=== PATIENT | male | born 1945 | race Caucasian/White ===

== ENCOUNTER → 2016-12-07 | Outpatient (CLI) | payer MEDICARE ==
[~2016-12-07] MED LIST: BAYE325T3 PO; BENA10TA PO; FLUO40CA PO; GLIM4TAB PO; LANTUSP SQ; LIPI20TA PO; LORA-474 PO; METF-324 PO; METO25 PO; NORV5TAB PO; NOVOLOGP2 SQ; TRAZ50TA78 PO
[2016-12-07 07:17] LABS: HEMATOCRIT 45.2 % (39.0-51.0); MEAN CELL VOLUME 81.6 FL (80.0-100.0); MEAN CORPUSCULAR HGB CONC 34.3 % (32.0-36.0); PLATELET COUNT 161 TH/MM3 (150-450); RED BLOOD COUNT 5.54 MIL/MM3 (4.50-5.90); RED CELL DISTRIBUTION WIDTH 13.6 % (11.6-17.2); REVIEW FLAG FINAL; WHITE BLOOD COUNT 8.3 TH/MM3 (4.0-11.0)
[2016-12-07 07:40] LABS: ALT (GPT) 22 U/L (12-78); ANION GAP 13 MEQ/L (5-15); AST (GOT) 14 U/L (15-37); BICARBONATE 27.2 MEQ/L (21.0-32.0); BLOOD UREA NITROGEN 11 MG/DL (7-18); CHLORIDE 101 MEQ/L (98-107); GLOMERULAR FILTRATION RATE 107 ML/MIN (>89); GLUCOSE,FASTING 150 MG/DL (74-99); POTASSIUM 3.9 MEQ/L (3.5-5.1); SODIUM (NA) 141 MEQ/L (136-145)
[2016-12-07 07:42] LABS: ALKALINE PHOSPHATASE 68 U/L (45-117); HDL CHOLESTEROL 41.7 MG/DL (40.0-60.0); LDL CHOLESTEROL 26 MG/DL (0-99); TOTAL BILIRUBIN ADULT 0.5 MG/DL (0.2-1.0)
[2016-12-07 08:01] LABS: MICRO ALBUMIN RANDOM URINE RAW 38.9 MG/L (0.0-30.0)
[2016-12-07 13:30] LABS: HEMOGLOBIN A1a 0.9 %; HEMOGLOBIN A1b 2.6 %; HEMOGLOBIN Ao 81.9 %; HEMOGLOBIN LA1C 2.4 %; HEMOGLOBIN P3 4.1 %
== END ==
LOC: CLAB 06:36
DX: E11.65 Type 2 diabetes mellitus with hyperglycemia (principal); F31.12 Bipolar disorder, current episode manic without psychotic features, moderate
CPT/HCPCS: 36415; 80053; 80061; 80164; 82043; 83036; 84681; 85027

== ENCOUNTER → 2017-01-03 | Outpatient (CLI) | payer MEDICARE ==
[2017-01-03 10:13] LABS: HEMATOCRIT 45.2 % (39.0-51.0); MEAN CORPUSCULAR HEMOGLOBIN 26.9 PG (27.0-34.0); MEAN CORPUSCULAR HGB CONC 33.2 % (32.0-36.0); PLATELET COUNT 168 TH/MM3 (150-450); RED BLOOD COUNT 5.58 MIL/MM3 (4.50-5.90); RED CELL DISTRIBUTION WIDTH 13.8 % (11.6-17.2); REVIEW FLAG FINAL; WHITE BLOOD COUNT 9.4 TH/MM3 (4.0-11.0)
[2017-01-03 10:38] LABS: ALKALINE PHOSPHATASE 62 U/L (45-117); ALT (GPT) 22 U/L (12-78); ANION GAP 10 MEQ/L (5-15); AST (GOT) 11 U/L (15-37); BICARBONATE 28.4 MEQ/L (21.0-32.0); BLOOD UREA NITROGEN 12 MG/DL (7-18); CHLORIDE 100 MEQ/L (98-107); GLOMERULAR FILTRATION RATE 102 ML/MIN (>89); GLUCOSE,FASTING 217 MG/DL (74-99); POTASSIUM 4.2 MEQ/L (3.5-5.1); SODIUM (NA) 138 MEQ/L (136-145); TOTAL BILIRUBIN ADULT 0.6 MG/DL (0.2-1.0)
== END ==
LOC: CLAB 09:49
DX: F31.12 Bipolar disorder, current episode manic without psychotic features, moderate (principal)
CPT/HCPCS: 36415; 80053; 80164; 85027

== ENCOUNTER → 2017-01-31 | Outpatient (CLI) | payer MEDICARE ==
[2017-01-31 11:04] LABS: MEAN CELL VOLUME 80.9 FL (80.0-100.0); MEAN CORPUSCULAR HEMOGLOBIN 26.5 PG (27.0-34.0); MEAN CORPUSCULAR HGB CONC 32.8 % (32.0-36.0); PLATELET COUNT 140 TH/MM3 (150-450); RED BLOOD COUNT 5.82 MIL/MM3 (4.50-5.90); RED CELL DISTRIBUTION WIDTH 14.3 % (11.6-17.2); REVIEW FLAG FINAL; WHITE BLOOD COUNT 7.4 TH/MM3 (4.0-11.0)
[2017-01-31 11:39] LABS: ALKALINE PHOSPHATASE 61 U/L (45-117); ALT (GPT) 22 U/L (12-78); ANION GAP 12 MEQ/L (5-15); AST (GOT) 15 U/L (15-37); BICARBONATE 27.4 MEQ/L (21.0-32.0); BLOOD UREA NITROGEN 13 MG/DL (7-18); CHLORIDE 99 MEQ/L (98-107); GLOMERULAR FILTRATION RATE 89 ML/MIN (>89); GLUCOSE,FASTING 297 MG/DL (74-99); POTASSIUM 4.3 MEQ/L (3.5-5.1); SODIUM (NA) 138 MEQ/L (136-145); TOTAL BILIRUBIN ADULT 0.7 MG/DL (0.2-1.0)
== END ==
LOC: CLAB 10:34
DX: F31.12 Bipolar disorder, current episode manic without psychotic features, moderate (principal)
CPT/HCPCS: 36415; 80053; 80164; 85027

== ENCOUNTER → 2017-03-22 | Outpatient (CLI) | payer MEDICARE ==
[2017-03-22 07:34] LABS: ANION GAP 9 MEQ/L (5-15); BICARBONATE 29.3 MEQ/L (21.0-32.0); BLOOD UREA NITROGEN 16 MG/DL (7-18); CHLORIDE 102 MEQ/L (98-107); GLOMERULAR FILTRATION RATE 116 ML/MIN (>89); GLUCOSE,FASTING 165 MG/DL (74-99); POTASSIUM 3.8 MEQ/L (3.5-5.1); SODIUM (NA) 140 MEQ/L (136-145)
[2017-03-22 16:51] LABS: HEMOGLOBIN A1b 2.6 %; HEMOGLOBIN Ao 82.1 %; HEMOGLOBIN LA1C 2.3 %; HEMOGLOBIN P3 4.2 %
== END ==
LOC: CLAB 06:33
DX: E11.65 Type 2 diabetes mellitus with hyperglycemia (principal)
CPT/HCPCS: 36415; 80048; 83036

== ENCOUNTER → 2017-07-22 | Outpatient (CLI) | payer MEDICARE ==
[2017-07-22 08:27] LABS: ANION GAP 8 MEQ/L (5-15); BICARBONATE 27.4 MEQ/L (21.0-32.0); BLOOD UREA NITROGEN 20 MG/DL (7-18); CHLORIDE 103 MEQ/L (98-107); GLOMERULAR FILTRATION RATE 121 ML/MIN (>89); GLUCOSE,FASTING 195 MG/DL (74-99); SODIUM (NA) 138 MEQ/L (136-145)
[2017-07-22 14:57] LABS: HEMOGLOBIN A1a 0.9 %; HEMOGLOBIN A1b 2.8 %; HEMOGLOBIN Ao 80.9 %; HEMOGLOBIN LA1C 2.4 %; HEMOGLOBIN P3 4.1 %
== END ==
LOC: CLAB 06:58
DX: E11.65 Type 2 diabetes mellitus with hyperglycemia (principal)
CPT/HCPCS: 36415; 80048; 83036

== ENCOUNTER → 2017-11-07 | Outpatient (CLI) | payer MEDICARE ==
[2017-11-07 16:49] LABS: BASOPHIL % 0.5 % (0.0-2.0); EOSINOPHIL # 0.1 TH/MM3 (0-0.4); EOSINOPHIL % 0.7 % (0.0-4.0); HEMATOCRIT 46.8 % (39.0-51.0); HEMOGLOBIN 16.2 GM/DL (13.0-17.0); MEAN CELL VOLUME 79.2 FL (80.0-100.0); MEAN CORPUSCULAR HEMOGLOBIN 27.4 PG (27.0-34.0); MEAN CORPUSCULAR HGB CONC 34.6 % (32.0-36.0); MEAN PLATELET VOLUME 7.5 FL (7.0-11.0); MONO % 6.7 % (0.0-8.0); MONOCYTE # 0.6 TH/MM3 (0-0.9); NEUT % 69.1 % (16.0-70.0); PLATELET COUNT 168 TH/MM3 (150-450); RED BLOOD COUNT 5.92 MIL/MM3 (4.50-5.90); RED CELL DISTRIBUTION WIDTH 14.5 % (11.6-17.2); WHITE BLOOD COUNT 8.7 TH/MM3 (4.0-11.0)
[2017-11-07 17:17] LABS: ALBUMIN 4.1 GM/DL (3.4-5.0); AST (GOT) 19 U/L (15-37); BICARBONATE 30.1 MEQ/L (21.0-32.0); BLOOD UREA NITROGEN 21 MG/DL (7-18); CALCIUM 10.2 MG/DL (8.5-10.1); CHLORIDE 98 MEQ/L (98-107); CREATININE 0.87 MG/DL (0.60-1.30); GLOMERULAR FILTRATION RATE 87 ML/MIN (>89); GLUCOSE,FASTING 173 MG/DL (74-99); SODIUM (NA) 136 MEQ/L (136-145)
[2017-11-07 17:18] LABS: ALT (GPT) 27 U/L (12-78)
[2017-11-07 17:28] LABS: ALKALINE PHOSPHATASE 76 U/L (45-117); FREE T4 0.99 NG/DL (0.76-1.46); TOTAL PROTEIN 7.5 GM/DL (6.4-8.2)
== END ==
LOC: CLAB 16:19
PROVIDERS: ATTEND Internal Medicine Cardiovascular Disease
DX: R53.83 Other fatigue (principal)
CPT/HCPCS: 36415; 80053; 84439; 84443; 85025

== ENCOUNTER 2018-08-16 17:07 | Observation (INO) ==
--- NOTE | 2018-08-16 17:48 | XR ---
EXAM DATE: 08/16/2018 5:41 PM EST AGE/SEX: 73 years / Male INDICATIONS: Evaluate for pneumonia, pneumothorax, or communicable disease. Cough. CLINICAL DATA: This is the patient's initial encounter. Patient reports that signs and symptoms have been present for 1 day and indicates a pain score of 0/10. MEDICAL/SURGICAL HISTORY: None. None. COMPARISON: [facility] [place], 02/18/2013. . FINDINGS: AP and lateral views of the chest demonstrate the lungs to be symmetrically aerated without evidence of mass, infiltrate or effusion. The cardiomediastinal contours are unremarkable. There are some old bilateral rib fractures. Degenerative changes and slight kyphosis thoracic spine. CONCLUSION: No acute cardiopulmonary disease. Electronically signed by: Andrea Tobin MD 08/16/2018 5:47 PM EST
[2018-08-16] MEDS ORDERED: Sod Chloride 0.9% Inj 1,000 ML IV.SIG ONE (18:15)
--- NOTE | 2018-08-16 18:26 | ED ---
HPI General Chief complaint: Fever Stated complaint: cough/ fever Time Seen by Provider: 08/16/18 18:07 Source: patient Mode of arrival: ambulatory Limitations: no limitations History of Present Illness HPI narrative: Patient is a 73-year-old male here today for cough, congestion, malaise, low-grade fever for the last 4-5 days. He states that it started when he was in the [facility] last week he has decreased appetite and has lost 5 pounds. He is a productive green cough, and states that the upper part of his belly is uncomfortable from all the coughing. Talking, deep breathing, and lying flat make it worse, nothing has made it better. He vomited 2 times on the plane on the way home. They came to emergency department right from airport. He did get an influenza shot this year. Onset (ago): day(s) Associated symptoms: Reports cough, fever/chills, loss of appetite, malaise, nausea/vomiting and rash (Bilateral lower extremeties-bitten by ants in [facility]. ); Denies confusion, chest pain, diaphoresis and headaches Related Data Home Medications Medication Instructions Recorded Confirmed alendronate [Fosamax] 70 mg PO QWEEK 08/16/18 08/16/18 amlodipine [Norvasc] 5 mg PO DAILY 08/16/18 08/16/18 aripiprazole 10 mg PO HS 08/16/18 08/16/18 aspirin 325 mg PO DAILY 08/16/18 08/16/18 atorvastatin [Lipitor] 20 mg PO DAILY 08/16/18 08/16/18 benazepril 20 mg PO BID 08/16/18 08/16/18 bupropion HCl [Wellbutrin SR] 150 mg PO DAILY 08/16/18 08/16/18 glimepiride 4 mg PO QAM 08/16/18 08/16/18 insulin NPH and regular human 1 sliding scale dose SUBCUT UD 08/16/18 08/16/18 [Novolin 70/30 U-100 Insulin] insulin glargine [Lantus U-100 32 unit SUBCUT DAILY 08/16/18 08/16/18 Insulin] metformin [Glucophage] 1,000 mg PO BID 08/16/18 08/16/18 omeprazole magnesium [Prilosec OTC] 20 mg PO DAILY 08/16/18 08/16/18 oxycodone-acetaminophen [Percocet] 1 tab PO Q4-6H PRN 08/16/18 08/16/18 Allergies Allergy/AdvReac Type Severity Reaction Status Date / Time penicillin G Allergy Unknown Rash Unverified 08/16/18 17:24 Review of Systems ROS: all other systems reviewed are negative [facility] Family History Family History Other Coronary artery disease Social History Social History Substance History: No History of Abuse Second Hand Smoke Exposure: No Smoking Status: Former smoker How Often Do You Have a Drink Containing Alcohol: Never Recent Travel in [facility] within the Last 8 Weeks: No Recent Out of Country Travel within the Last 8 Weeks: No Exam Narrative Exam Narrative: GENERAL: Pt awake, alert, oriented. No acute distress. Pt actively coughing. SKIN: Focused skin assessment warm/dry. Papular rash to bilateral lower extremities patient states he was bitten by ants in the [facility]. HEAD: Atraumatic. Normocephalic. EYES: Pupils equal and round. No scleral icterus. No injection or drainage. ENT: No nasal bleeding or discharge. Mucous membranes pink and moist. Ears bilatearlly with impacted cerumen. Nares with erythema and inflammation. No facial tenderness with palpation. Throat with significant erythema, no exudate. Tonsils not present that I can see at this time. NECK: Trachea midline. No JVD. CARDIOVASCULAR: Regular rate and rhythm. No murmur appreciated. RESPIRATORY: No accessory muscle use. Diminished to auscultation bilaterally. Breath sounds equal bilaterally. GASTROINTESTINAL: Abdomen soft, non-tender, nondistended. Hepatic and splenic margins not palpable. (+) bowel sounds all 4 quadrants. MUSCULOSKELETAL: No obvious deformities. No clubbing. No cyanosis. No edema. NEUROLOGICAL: Awake and alert. No obvious cranial nerve deficits. Motor grossly within normal limits. Normal speech. PSYCHIATRIC: Appropriate mood and affect; insight and judgment normal. Course Initial Documented Vital Signs Temperature 98.5 F 08/16/18 17:18 Pulse Rate 85 08/16/18 17:18 Respiratory Rate 24 08/16/18 17:18 Blood Pressure 176/85 H 08/16/18 17:18 Pulse Oximetry 96 08/16/18 17:18 Last Documented Vital Signs Temperature 98.1 F 08/17/18 12:00 Pulse Rate 71 08/17/18 12:00 Respiratory Rate 22 08/17/18 12:00 Blood Pressure 140/67 08/17/18 12:00 Pulse Oximetry 93 L 08/17/18 12:00 Medical Decision Making ROBERT Attestation ROBERT supervised visit: Yes Attestation: I assumed the care of this patient at 9 PM. Clinically, he has bronchitis. He has had one albuterol neb thus far. On examination following the neb, he has significant coarse wheezing. He also continues to have a very persistent cough. He will be treated with Solu-Medrol and 3 more nebs. Also, the patient's urine is very concentrated appearing. He will be given another liter of fluids. 10:15 PM This patient continues to have persistent coughing. His air movement is improved but he still has diffuse coarse expiratory wheezes. He is amenable to admission for observation. MDM Narrative Medical decision making narrative: Medical decision making narrative: During the course of the patients emergency department visit, the patients history, examination, and differential diagnosis were reviewed with the patient. The patient was placed on a lunchroom monitor with oximetry and frequent blood pressure monitoring. The patient was initially provided Zofran for nausea, iv ns bolus, labwork, ua, influenza swab. The patients laboratory studies were reviewed and remarkable for . Radiology studies were reviewed and CXR was unremarkable. Signed patient out to Dr. Carmichael at 2100. Medical Screen Exam Complete: Yes Emergency Medical Condition: Yes Medical Screen Exam Complete: Yes Emergency Medical Condition: Yes Differential Diagnosis Differential Diagnosis: Pneumonia, influenza, bronchitis, Dengue fever, viral illness, Lab Data Result diagrams: 08/17/18 04:33 08/17/18 04:33 Lab Results 08/16/18 08/16/18 08/16/18 Range/Units 18:40 18:40 18:40 WBC 11.8 H (4.0-11.0) th/mm3 RBC 5.48 (4.50-5.90) mil/mm3 Hgb 15.2 (13.0-17.0) gm/dL Hct 44.6 (39.0-51.0) % MCV 81.2 (80.0-100.0) fL MCH 27.6 (27.0-34.0) pg MCHC 34.0 (32.0-36.0) % RDW 14.1 (11.6-17.2) % Plt Count 196 (150-450) th/mm3 MPV 7.6 (7.0-11.0) fL Neut % (Auto) 78.6 H (16.0-70.0) % Lymph % (Auto) 14.9 (9.0-44.0) % Gillespie % (Auto) 6.3 (0.0-8.0) % Eos % (Auto) 0.0 (0.0-4.0) % Baso % (Auto) 0.2 (0.0-2.0) % Neut # (Auto) 9.3 H (1.8-7.7) th/mm3 Lymph # (Auto) 1.8 (1.0-4.8) th/mm3 Gillespie # (Auto) 0.7 (0.0-0.9) th/mm3 Eos # (Auto) 0.0 (0.0-0.4) th/mm3 Baso # (Auto) 0.0 (0.0-0.2) th/mm3 WBC Differential . Differential Comment Auto diff final Sodium 135 L (136-145) meq/L Potassium 3.4 L (3.5-5.1) meq/L Chloride 96 L (98-107) meq/L Carbon Dioxide 28.8 (21.0-32.0) meq/L Anion Gap 10 (5-15) meq/L BUN 20 H (7-18) mg/dL Creatinine 0.81 (0.60-1.30) mg/dL Estimated GFR Greater than 89 (>89) mL/min POC Glucose (68-110) mg/dl Random Glucose 295 H (74-106) mg/dL Lactic Acid 2.1 H (0.4-2.0) mmol/L Calcium 8.5 (8.5-10.1) mg/dL Total Bilirubin 1.6 H (0.2-1.0) mg/dL AST 15 (15-37) U/L ALT 19 (12-78) U/L Alkaline Phosphatase 81 (45-117) U/L Total Protein 7.2 (6.4-8.2) g/dL Albumin 3.5 (3.4-5.0) g/dL Urine Color (Yellw/Straw) Urine Clarity (Clear) Urine pH (5.0-8.5) Ur Specific [place] (1.002-1.035) Urine Protein (Neg-Trace) mg/dL Urine Glucose (UA) (Negative) mg/dL Urine Ketones (Negative) mg/dL Urine Occult Blood (Negative) Urine Nitrate (Negative) Urine Bilirubin (Negative) Urine Urobilinogen (Less than 2) mg/dL Ur Leukocyte Esterase (Negative) Urine RBC (0-3) /hpf Urine WBC (0-5) /hpf Hyaline Casts (0-3) /lpf Urine Mucus (Occasional) /lpf Micro UA Comment Ur Microscopic Review Urine Culture Comments 08/16/18 08/16/18 08/17/18 Range/Units 20:00 21:25 00:34 WBC (4.0-11.0) th/mm3 RBC (4.50-5.90) mil/mm3 Hgb (13.0-17.0) gm/dL Hct (39.0-51.0) % MCV (80.0-100.0) fL MCH (27.0-34.0) pg MCHC (32.0-36.0) % RDW (11.6-17.2) % Plt Count (150-450) th/mm3 MPV (7.0-11.0) fL Neut % (Auto) (16.0-70.0) % Lymph % (Auto) (9.0-44.0) % Gillespie % (Auto) (0.0-8.0) % Eos % (Auto) (0.0-4.0) % Baso % (Auto) (0.0-2.0) % Neut # (Auto) (1.8-7.7) th/mm3 Lymph # (Auto) (1.0-4.8) th/mm3 Gillespie # (Auto) (0.0-0.9) th/mm3 Eos # (Auto) (0.0-0.4) th/mm3 Baso # (Auto) (0.0-0.2) th/mm3 WBC Differential Differential Comment Sodium (136-145) meq/L Potassium (3.5-5.1) meq/L Chloride (98-107) meq/L Carbon Dioxide (21.0-32.0) meq/L Anion Gap (5-15) meq/L BUN (7-18) mg/dL Creatinine (0.60-1.30) mg/dL Estimated GFR (>89) mL/min POC Glucose 323 H (68-110) mg/dl Random Glucose (74-106) mg/dL Lactic Acid 2.3 H (0.4-2.0) mmol/L Calcium (8.5-10.1) mg/dL Total Bilirubin (0.2-1.0) mg/dL AST (15-37) U/L ALT (12-78) U/L Alkaline Phosphatase (45-117) U/L Total Protein (6.4-8.2) g/dL Albumin (3.4-5.0) g/dL Urine Color Yellow (Yellw/Straw) Urine Clarity Clear (Clear) Urine pH 5.0 (5.0-8.5) Ur Specific [place] 1.031 (1.002-1.035) Urine Protein 30 H (Neg-Trace) mg/dL Urine Glucose (UA) 500 or greater (Negative) mg/dL Urine Ketones 20 (Negative) mg/dL Urine Occult Blood Negative (Negative) Urine Nitrate Negative (Negative) Urine Bilirubin Negative (Negative) Urine Urobilinogen 4 or greater (Less than 2) mg/dL Ur Leukocyte Esterase Negative (Negative) Urine RBC 1 (0-3) /hpf Urine WBC 3 (0-5) /hpf Hyaline Casts 4 (0-3) /lpf Urine Mucus Few H (Occasional) /lpf Micro UA Comment Culture not ind Ur Microscopic Review Not Reportable Urine Culture Comments Culture not ind 08/17/18 08/17/18 08/17/18 Range/Units 02:34 02:34 02:34 WBC 9.4 (4.0-11.0) th/mm3 RBC 4.85 (4.50-5.90) mil/mm3 Hgb 13.4 (13.0-17.0) gm/dL Hct 39.8 (39.0-51.0) % MCV 82.2 (80.0-100.0) fL MCH 27.7 (27.0-34.0) pg MCHC 33.6 (32.0-36.0) % RDW 14.5 (11.6-17.2) % Plt Count 170 (150-450) th/mm3 MPV 7.4 (7.0-11.0) fL Neut % (Auto) 93.4 H (16.0-70.0) % Lymph % (Auto) 4.6 L (9.0-44.0) % Gillespie % (Auto) 2.0 (0.0-8.0) % Eos % (Auto) 0.0 (0.0-4.0) % Baso % (Auto) 0.0 (0.0-2.0) % Neut # (Auto) 8.7 H (1.8-7.7) th/mm3 Lymph # (Auto) 0.4 L (1.0-4.8) th/mm3 Gillespie # (Auto) 0.2 (0.0-0.9) th/mm3 Eos # (Auto) 0.0 (0.0-0.4) th/mm3 Baso # (Auto) 0.0 (0.0-0.2) th/mm3 WBC Differential . Differential Comment Auto diff final Sodium 139 (136-145) meq/L Potassium 3.3 L (3.5-5.1) meq/L Chloride 103 (98-107) meq/L Carbon Dioxide 24.2 (21.0-32.0) meq/L Anion Gap 12 (5-15) meq/L BUN 15 (7-18) mg/dL Creatinine 0.78 (0.60-1.30) mg/dL Estimated GFR Greater than 89 (>89) mL/min POC Glucose (68-110) mg/dl Random Glucose 396 H D (74-106) mg/dL Lactic Acid 4.2 H* (0.4-2.0) mmol/L Calcium 7.6 L D (8.5-10.1) mg/dL Total Bilirubin (0.2-1.0) mg/dL AST (15-37) U/L ALT (12-78) U/L Alkaline Phosphatase (45-117) U/L Total Protein (6.4-8.2) g/dL Albumin (3.4-5.0) g/dL Urine Color (Yellw/Straw) Urine Clarity (Clear) Urine pH (5.0-8.5) Ur Specific [place] (1.002-1.035) Urine Protein (Neg-Trace) mg/dL Urine Glucose (UA) (Negative) mg/dL Urine Ketones (Negative) mg/dL Urine Occult Blood (Negative) Urine Nitrate (Negative) Urine Bilirubin (Negative) Urine Urobilinogen (Less than 2) mg/dL Ur Leukocyte Esterase (Negative) Urine RBC (0-3) /hpf Urine WBC (0-5) /hpf Hyaline Casts (0-3) /lpf Urine Mucus (Occasional) /lpf Micro UA Comment Ur Microscopic Review Urine Culture Comments 08/17/18 08/17/18 08/17/18 Range/Units 04:33 04:33 04:33 WBC 8.2 (4.0-11.0) th/mm3 RBC 5.13 (4.50-5.90) mil/mm3 Hgb 14.3 (13.0-17.0) gm/dL Hct 42.3 (39.0-51.0) % MCV 82.4 (80.0-100.0) fL MCH 27.9 (27.0-34.0) pg MCHC 33.8 (32.0-36.0) % RDW 14.2 (11.6-17.2) % Plt Count 164 (150-450) th/mm3 MPV 7.3 (7.0-11.0) fL Neut % (Auto) 92.1 H (16.0-70.0) % Lymph % (Auto) 6.0 L (9.0-44.0) % Gillespie % (Auto) 1.8 (0.0-8.0) % Eos % (Auto) 0.0 (0.0-4.0) % Baso % (Auto) 0.1 (0.0-2.0) % Neut # (Auto) 7.5 (1.8-7.7) th/mm3 Lymph # (Auto) 0.5 L (1.0-4.8) th/mm3 Gillespie # (Auto) 0.2 (0.0-0.9) th/mm3 Eos # (Auto) 0.0 (0.0-0.4) th/mm3 Baso # (Auto) 0.0 (0.0-0.2) th/mm3 WBC Differential . Differential Comment Auto diff final Sodium 140 (136-145) meq/L Potassium 3.7 (3.5-5.1) meq/L Chloride 102 (98-107) meq/L Carbon Dioxide 26.0 (21.0-32.0) meq/L Anion Gap 12 (5-15) meq/L BUN 15 (7-18) mg/dL Creatinine 0.91 (0.60-1.30) mg/dL Estimated GFR 82 L (>89) mL/min POC Glucose (68-110) mg/dl Random Glucose 366 H (74-106) mg/dL Lactic Acid 3.6 H (0.4-2.0) mmol/L Calcium 7.6 L (8.5-10.1) mg/dL Total Bilirubin (0.2-1.0) mg/dL AST (15-37) U/L ALT (12-78) U/L Alkaline Phosphatase (45-117) U/L Total Protein (6.4-8.2) g/dL Albumin (3.4-5.0) g/dL Urine Color (Yellw/Straw) Urine Clarity (Clear) Urine pH (5.0-8.5) Ur Specific [place] (1.002-1.035) Urine Protein (Neg-Trace) mg/dL Urine Glucose (UA) (Negative) mg/dL Urine Ketones (Negative) mg/dL Urine Occult Blood (Negative) Urine Nitrate (Negative) Urine Bilirubin (Negative) Urine Urobilinogen (Less than 2) mg/dL Ur Leukocyte Esterase (Negative) Urine RBC (0-3) /hpf Urine WBC (0-5) /hpf Hyaline Casts (0-3) /lpf Urine Mucus (Occasional) /lpf Micro UA Comment Ur Microscopic Review Urine Culture Comments 08/17/18 08/17/18 08/17/18 Range/Units 04:36 07:37 11:03 WBC (4.0-11.0) th/mm3 RBC (4.50-5.90) mil/mm3 Hgb (13.0-17.0) gm/dL Hct (39.0-51.0) % MCV (80.0-100.0) fL MCH (27.0-34.0) pg MCHC (32.0-36.0) % RDW (11.6-17.2) % Plt Count (150-450) th/mm3 MPV (7.0-11.0) fL Neut % (Auto) (16.0-70.0) % Lymph % (Auto) (9.0-44.0) % [place]pie % (Auto) (0.0-8.0) % Eos % (Auto) (0.0-4.0) % Baso % (Auto) (0.0-2.0) % Neut # (Auto) (1.8-7.7) th/mm3 Lymph # (Auto) (1.0-4.8) th/mm3 Gillespie # (Auto) (0.0-0.9) th/mm3 Eos # (Auto) (0.0-0.4) th/mm3 Baso # (Auto) (0.0-0.2) th/mm3 WBC Differential Differential Comment Sodium (136-145) meq/L Potassium (3.5-5.1) meq/L Chloride (98-107) meq/L Carbon Dioxide (21.0-32.0) meq/L Anion Gap (5-15) meq/L BUN (7-18) mg/dL Creatinine (0.60-1.30) mg/dL Estimated GFR (>89) mL/min POC Glucose 358 H 287 H 192 H (68-110) mg/dl Random Glucose (74-106) mg/dL Lactic Acid (0.4-2.0) mmol/L Calcium (8.5-10.1) mg/dL Total Bilirubin (0.2-1.0) mg/dL AST (15-37) U/L ALT (12-78) U/L Alkaline Phosphatase (45-117) U/L Total Protein (6.4-8.2) g/dL Albumin (3.4-5.0) g/dL Urine Color (Yellw/Straw) Urine Clarity (Clear) Urine pH (5.0-8.5) Ur Specific [place] (1.002-1.035) Urine Protein (Neg-Trace) mg/dL Urine Glucose (UA) (Negative) mg/dL Urine Ketones (Negative) mg/dL Urine Occult Blood (Negative) Urine Nitrate (Negative) Urine Bilirubin (Negative) Urine Urobilinogen (Less than 2) mg/dL Ur Leukocyte Esterase (Negative) Urine RBC (0-3) /hpf Urine WBC (0-5) /hpf Hyaline Casts (0-3) /lpf Urine Mucus (Occasional) /lpf Micro UA Comment Ur Microscopic Review Urine Culture Comments Imaging Data Radiologist's impression: Chest X-Ray 08/16/18 00:00 CONCLUSION: No acute cardiopulmonary disease. Discharge Plan Discharge Disposition Patient Disposition: 30 Still Patient Discharge Details Diagnosis: Acute bronchitis with bronchospasm Physicians Team ED Provider: Ange Carmichael ED Midlevel Provider: Lorie Hurley Primary Care Provider: James Scales Attending Provider: Howard Carter Status ED Status: Left Department Discharge Information Discharge Date/Time: 08/17/18 00:25
[2018-08-16 19:11] LABS: Baso % (Auto) 0.2 % (0.0-2.0); Hematocrit 44.6 % (39.0-51.0); Hemoglobin 15.2 gm/dL (13.0-17.0); Lymph # (Auto) 1.8 th/mm3 (1.0-4.8); Lymph % (Auto) 14.9 % (9.0-44.0); Mean Corpuscular Hemoglobin 27.6 pg (27.0-34.0); Mean Corpuscular Volume 81.2 fL (80.0-100.0); Mean Platelet Volume 7.6 fL (7.0-11.0); Mono # (Auto) 0.7 th/mm3 (0.0-0.9); Mono % (Auto) 6.3 % (0.0-8.0); Neut # (Auto) 9.3 th/mm3 (1.8-7.7); Neut % (Auto) 78.6 % (16.0-70.0); Platelet Count 196 th/mm3 (150-450); Red Blood Count 5.48 mil/mm3 (4.50-5.90); Red Cell Distribution Width 14.1 % (11.6-17.2); White Blood Count 11.8 th/mm3 (4.0-11.0)
[2018-08-16] MEDS ORDERED: Levofloxacin 500 mg Premix Inj 500 MG/100 ML PIGGYBACK IV.SIG ONE (19:30)
[2018-08-16 19:42] LABS: Albumin 3.5 g/dL (3.4-5.0); Anion Gap 10 meq/L (5-15); Aspartate Aminotransferase 15 U/L (15-37); Blood Urea Nitrogen 20 mg/dL (7-18); Calcium 8.5 mg/dL (8.5-10.1); Carbon Dioxide 28.8 meq/L (21.0-32.0); Chloride 96 meq/L (98-107); Glomerular Filtration Rate Greater Than 89 mL/min (>89); Glucose,Random 295 mg/dL (74-106); Potassium 3.4 meq/L (3.5-5.1); Sodium 135 meq/L (136-145)
[2018-08-16 19:43] LABS: Alanine Aminotransferase 19 U/L (12-78)
[2018-08-16 19:45] LABS: Alkaline Phosphatase 81 U/L (45-117); Total Protein 7.2 g/dL (6.4-8.2)
[2018-08-16 20:20] LABS: Bilirubin,Urine Negative (Negative); Clarity,Urine Clear (Clear); Color,Urine Yellow (Yellw/Straw); Glucose,Urine (UA) 500 or Greater mg/dL (Negative); Hyaline Casts,Urine 4 /lpf (0-3); Leukocyte Esterase,Urine Negative (Negative); Mucus,Urine Few /lpf (Occasional); Nitrite,Urine Negative (Negative); Specific Gravity,Urine 1.031 (1.002-1.035); Urobilinogen,Urine 4 or Greater mg/dL (Less than 2)
[2018-08-16] MEDS ORDERED: MethylPREDNISolone Sod Succinate Inj 125 MG/2 ML Vial IV.PUSH ONE (21:03)
[2018-08-16] MEDS ORDERED: Aluminum/Magnesium/Simethacone Susp 30 ML UDC PO ONE (21:23)
[2018-08-16] MEDS ORDERED: Sod Chloride 0.9% Inj 1,000 ML IV.SIG SCH ×2 (21:30→22:30)
[2018-08-16] MEDS ORDERED: Insulin Detemir Inj 1,000 UNIT/10 ML Vial SQ ONE (23:52)
[2018-08-16] MEDS ORDERED: Dextrose 50% in Water 50 ML Vial IV.PUSH PRN (23:53)
[2018-08-16] MEDS ORDERED: Bisacodyl 10 MG Supp RECTAL PRN (23:56)
[2018-08-16] MEDS ORDERED: Acetaminophen 325 MG Tablet PO PRN (23:56)
[2018-08-16] MEDS ORDERED: Temazepam 15 MG Capsule PO PRN (23:56)
[2018-08-17] MEDS ORDERED: Sodium Chloride 0.9% 2 ML Flush PRN IV.FLUSH (00:39)
[2018-08-17] MEDS: ARIPiprazole 10 MG Tablet PO SCH ×2 (01:03→20:07)
[2018-08-17] MEDS: Enoxaparin Inj 40 MG/0.4 ML Syringe SQ SCH (01:03)
[2018-08-17] MEDS: MethylPREDNISolone Sod Succinate Inj 40 MG/ML Vial IV.PUSH SCH ×4 (01:04→17:36)
[2018-08-17] MEDS: Potassium Chloride Inj 10 MEQ in Sod Chloride 0.9% Inj 1,000 ML IV.CONT SCH ×3 (01:04→22:25)
[2018-08-17] MEDS: Lisinopril 20 MG Tablet PO SCH ×3 (01:04→20:07)
--- NOTE | 2018-08-17 01:43 | P.HP ---
History of Present Illness Service: [facility] Primary Care Physician: James Scales MD History of Present Illness: 73-year-old male with a past medical history significant for hypertension and diabetes presents to the emergency department for the evaluation of shortness of breath, wheezing, fever, nausea/vomiting and the inability to tolerate p.o. for the past 2 days. The patient and his were previously in the [facility]. On 08/05 the patient developed a cough which persisted for approximately 5 days and then improved. On 08/12 he developed a fever and his current symptoms. Per his , she could hear audible wheezing on the plane this afternoon. Patient denies any chest pain. No lateralizing signs/symptoms. Review of Systems All other systems reviewed negative except as stated in HPI [facility] - History History Provided By: Patient - Medical History Medical History: Medical History (Last Reviewed 08/17/18 @ 01:37 by Kathi Mendoza MD) Atrial fibrillation Colon polyp Dengue Depression Diabetes Hypertension Kidney stones Osteoporosis - Surgical History Surgical History: Surgical History (Last Reviewed 08/17/18 @ 01:37 by Kathi Mendoza MD) H/O cardiac radiofrequency ablation H/O neck surgery History of back surgery - Family History Family History: Family History (Last Updated 08/17/18 @ 01:37 by Kathi Mendoza MD) Other Coronary artery disease - Social History I have reviewed the patient's Social History: Yes - Tobacco History Second Hand Smoke Exposure: No Smoking Status: Former smoker - Alcohol History How Often Do You Have a Drink Containing Alcohol: Never - Substance Use History Substance History: No History of Abuse - Travel History Recent Travel in the [facility] Within the Last 8 Weeks: No Recent Travel Out of the Country Within the Last 8 Weeks: No - Immunization History Tetanus Immunization: >5 Years Hx Influenza Vaccine This Season: Yes Medications and Allergies Active Medications: Active Medications Acetaminophen (Tylenol) 650 mg PO Q4H PRN PRN Reason: Temp > 100.4 Albuterol (Duoneb Neb (Prn)) 1 ampul NEB Q15M PRN PRN Reason: BRONCOSPASM Last Admin: 08/16/18 20:31 Dose: 1 ampul Albuterol (Duoneb Neb (Prn)) 1 ampul NEB Q2HR NEB PRN PRN Reason: SHORTNESS OF BREATH/WHEEZING Amlodipine Besylate (Norvasc) 5 mg PO DAILY [facility] Aripiprazole (Abilify) 10 mg PO HS [facility] Last Admin: 08/17/18 01:03 Dose: 10 mg Aspirin (Aspirin) 325 mg PO DAILY [facility] Atorvastatin Calcium (Lipitor) 20 mg PO DAILY [facility] Bisacodyl (Dulcolax Supp) 10 mg RECTAL DAILY PRN PRN Reason: SEVERE CONSITIPATION Bupropion HCl (Wellbutrin Sr) 150 mg PO DAILY [facility] Dextrose (D50w Vial) 50 ml IV.PUSH UNSCH PRN PRN Reason: PER HYPOGLYCEMIA PROTOCOL Enoxaparin Sodium (Lovenox Inj) 40 mg SQ Q24H [facility] Last Admin: 08/17/18 01:03 Dose: 40 mg Glimepiride (Amaryl) 4 mg PO DAILY [facility] Glucagon (Glucagon Inj) 1 mg OTHER PRN PRN PRN Reason: for Hypoglycemia Protocol Potassium Chloride 10 meq/ (Sodium Chloride) 1,005 mls @ 100 mls/hr IV.CONT .Q10H3M [facility] Last Admin: 08/17/18 01:04 Dose: 100 mls/hr Insulin Aspart (Novolog Insulin Correctional Sugar Inj) 0 unit SQ ACHS AND 3AM [facility]; Protocol Insulin Detemir (Levemir Inj) 32 unit SQ DAILY [facility] Lisinopril (Prinivil) 20 mg PO BID [facility] Last Admin: 08/17/18 01:04 Dose: 20 mg Metformin HCl (Glucophage) 1,000 mg PO BID [facility] Methylprednisolone Sodium Succinate (Solumedrol Inj) 40 mg IV.PUSH Q6H [facility] Last Admin: 08/17/18 01:04 Dose: 40 mg Ondansetron HCl (Zofran Inj) 4 mg IV.PUSH Q6H PRN PRN Reason: NAUSEA OR VOMITING Oxycodone/Acetaminophen (Percocet 5/325 Mg) 1 tab PO Q6H PRN PRN Reason: Chronic Pain Pantoprazole Sodium (Protonix) 20 mg PO DAILY [facility] Sennosides (Senokot) 17.2 mg PO Q12H PRN PRN Reason: Moderate Constipation Sodium Chloride (Ns Flush) 2 ml IV.FLUSH BID [facility] Sodium Chloride (Ns Flush) 2 ml IV.FLUSH PRN PRN PRN Reason: FLUSH AFTER USING IV ACCESS Temazepam (Restoril) 15 mg PO HS PRN PRN Reason: INSOMNIA Allergies Allergy/AdvReac Type Severity Reaction Status Date / Time penicillin G Allergy Unknown Rash Unverified 08/16/18 17:24 Home Medications Medication Instructions Recorded Confirmed Type alendronate [Fosamax] 70 mg PO QWEEK 08/16/18 08/16/18 History amlodipine [Norvasc] 5 mg PO DAILY 08/16/18 08/16/18 History aripiprazole 10 mg PO HS 08/16/18 08/16/18 History aspirin 325 mg PO DAILY 08/16/18 08/16/18 History atorvastatin [Lipitor] 20 mg PO DAILY 08/16/18 08/16/18 History benazepril 20 mg PO BID 08/16/18 08/16/18 History bupropion HCl [Wellbutrin SR] 150 mg PO DAILY 08/16/18 08/16/18 History glimepiride 4 mg PO QAM 08/16/18 08/16/18 History insulin NPH and regular human 1 sliding scale dose SUBCUT UD 08/16/18 08/16/18 History [Novolin 70/30 U-100 Insulin] insulin glargine [Lantus U-100 32 unit SUBCUT DAILY 08/16/18 08/16/18 History Insulin] metformin [Glucophage] 1,000 mg PO BID 08/16/18 08/16/18 History omeprazole magnesium [Prilosec OTC] 20 mg PO DAILY 08/16/18 08/16/18 History oxycodone-acetaminophen [Percocet] 1 tab PO Q4-6H PRN 08/16/18 08/16/18 History Exam Vital signs: Vital Signs 08/16/18 17:18 08/16/18 18:37 08/16/18 20:32 Temperature 98.5 F Pulse Rate 85 85 Respiratory Rate 24 24 Blood Pressure 176/85 H Pulse Oximetry 96 97 08/16/18 21:26 08/16/18 23:23 08/17/18 00:00 Temperature 98.2 F Pulse Rate 85 96 H 104 H Respiratory Rate 24 17 Blood Pressure 166/72 H 165/76 H Pulse Oximetry 93 L Intake & Output 08/16/18 08/16/18 08/17/18 06:59 18:59 06:59 Intake Total 3100 / 3100 Balance 3100 / 3100 Weight 81.647 kg 82.9 kg Intake: IV 3100 / 3100 Levaquin 500 mg Premix Inj 500 100 / 100 mg In 100 ml @ 100 mls/hr IV. SIG ONCE ONE Rx#:[id number] NS Inj 1,000 ML @ 1000 mls/hr 3000 / 3000 IV.SIG BOLUS CESAR Rx#:[id number] Other: Weight On Admission 82.9 kg Narrative: Gen.: No acute distress Head: Normocephalic. Atraumatic. EENT: Pupils equal round and reactive to light. Nose without drainage. Airway intact. Throat without injection. Cardiovascular: Regular rate and rhythm. No murmurs, rubs or gallops. Respiratory: Bilateral wheezes throughout. No rales or rhonchi. Abdomen: Soft, nontender, nondistended. No peritoneal signs. Musculoskeletal: No gross deformities. No edema. Skin: No obvious rashes or erythema. Neuro: Sensory and motor grossly intact. Cranial nerves II through XII grossly intact. Results - Labs CBC & Chem 7: 08/16/18 18:40 08/16/18 18:40 Labs: Laboratory Results - last 24 hr 08/16/18 08/16/18 08/16/18 18:40 18:40 18:40 WBC 11.8 H RBC 5.48 Hgb 15.2 Hct 44.6 MCV 81.2 MCH 27.6 MCHC 34.0 RDW 14.1 Plt Count 196 MPV 7.6 Neut % (Auto) 78.6 H Lymph % (Auto) 14.9 [place] % (Auto) 6.3 Eos % (Auto) 0.0 Baso % (Auto) 0.2 Neut # (Auto) 9.3 H Lymph # (Auto) 1.8 [place] # (Auto) 0.7 Eos # (Auto) 0.0 Baso # (Auto) 0.0 WBC Differential . Differential Comment Auto diff final Sodium 135 L Potassium 3.4 L Chloride 96 L Carbon Dioxide 28.8 Anion Gap 10 BUN 20 H Creatinine 0.81 Estimated GFR Greater than 89 POC Glucose Random Glucose 295 H Lactic Acid 2.1 H Calcium 8.5 Total Bilirubin 1.6 H AST 15 ALT 19 Alkaline Phosphatase 81 Total Protein 7.2 Albumin 3.5 Urine Color Urine Clarity Urine pH Ur Specific [place] Urine Protein Urine Glucose (UA) Urine Ketones Urine Occult Blood Urine Nitrate Urine Bilirubin Urine Urobilinogen Ur Leukocyte Esterase Urine RBC Urine WBC Hyaline Casts Urine Mucus Micro UA Comment Ur Microscopic Review Urine Culture Comments 08/16/18 08/16/18 08/17/18 20:00 21:25 00:34 WBC RBC Hgb Hct MCV MCH MCHC RDW Plt Count MPV Neut % (Auto) Lymph % (Auto) [place] % (Auto) Eos % (Auto) Baso % (Auto) Neut # (Auto) Lymph # (Auto) [place] # (Auto) Eos # (Auto) Baso # (Auto) WBC Differential Differential Comment Sodium Potassium Chloride Carbon Dioxide Anion Gap BUN Creatinine Estimated GFR POC Glucose 323 H Random Glucose Lactic Acid 2.3 H Calcium Total Bilirubin AST ALT Alkaline Phosphatase Total Protein Albumin Urine Color Yellow Urine Clarity Clear Urine pH 5.0 Ur Specific [place] 1.031 Urine Protein 30 H Urine Glucose (UA) 500 or greater Urine Ketones 20 Urine Occult Blood Negative Urine Nitrate Negative Urine Bilirubin Negative Urine Urobilinogen 4 or greater Ur Leukocyte Esterase Negative Urine RBC 1 Urine WBC 3 Hyaline Casts 4 Urine Mucus Few H Micro UA Comment Culture not ind Ur Microscopic Review Not Reportable Urine Culture Comments Culture not ind - Imaging Impressions Chest X-Ray 08/16/18 00:00 CONCLUSION: No acute cardiopulmonary disease. Caprini VTE Risk Assessment Caprini VTE Risk Assessment: Moderate/High Risk (score >= 2) Caprini Risk Assessment Model: Point Value = 1 Point Value = 2 Point Value = 3 Point Value = 5 Age 41-60 Minor surgery BMI > 25 kg/m2 Swollen legs Varicose veins or History of unexplained or recurrent spontaneous Oral contraceptives or hormone replacement Sepsis (< 1 month) Serious lung disease, including pneumonia (< 1 month) Abnormal pulmonary function Acute myocardial infarction Congestive heart failure (< 1 month) History of inflammatory bowel disease Medical patient at bed rest Age 61-74 Arthroscopic surgery Major open surgery (> 45 min) Laparoscopic surgery (> 45 min) Malignancy Confined to bed (> 72 hours) Immobilizing plaster cast Central venous access Age >= 75 History of VTE Family history of VTE Factor V Leiden Prothrombin [id number] Lupus anticoagulant Anticardiolipin antibodies Elevated serum homocysteine Heparin-induced thrombocytopenia Other congenital or acquired thrombophilia Stroke (< 1 month) Elective arthroplasty Hip, pelvis, or leg fracture Acute spinal cord injury (< 1 month) Prophylaxis Regimen: Total Risk Factor Score Risk Level Prophylaxis Regimen 0-1 Low Early ambulation 2 Moderate Order ONE of the following: *Sequential Compression Device (SCD) *Heparin 5000 units SQ BID 3-4 Higher Order ONE of the following medications: *Heparin 5000 units SQ TID *Enoxaparin/Lovenox 40 mg SQ daily (WT < 150 kg, CrCl > 30 mL/min) *Enoxaparin/Lovenox 30 mg SQ daily (WT < 150 kg, CrCl > 10-29 mL/min) *Enoxaparin/Lovenox 30 mg SQ BID (WT < 150 kg, CrCl > 30 mL/min) AND/OR *Sequential Compression Device (SCD) 5 or more Highest Order ONE of the following medications: *Heparin 5000 units SQ TID (Preferred with Epidurals) *Enoxaparin/Lovenox 40 mg SQ daily (WT < 150 kg, CrCl > 30 mL/min) *Enoxaparin/Lovenox 30 mg SQ daily (WT < 150 kg, CrCl > 10-29 mL/min) *Enoxaparin/Lovenox 30 mg SQ BID (WT < 150 kg, CrCl > 30 mL/min) AND *Sequential Compression Device (SCD) Assessment and Plan - Plan Assessment/plan: 1. Shortness of breath Chest x-ray negative for acute process Concern for clinical pneumonia given increased cough, fever following URI Levaquin IV steroids given persistent wheezing and poor air movement Duo nebs 2. Nausea/vomiting Improving Zofran IV fluid hydration Diet as tolerated 3. Hypertension Continue home medications 4. Diabetes mellitus Continue home Lantus, metformin, glimepiride Sliding-scale insulin Monitor blood glucose 5. History of atrial fibrillation Status post ablation NSR FEN Cardiac and diabetic diet NS +10 KCl at 100 cc/hour Electrolytes: Monitor BMP, IV fluids supplemented with potassium Lovenox
[2018-08-17 03:00] LABS: Hematocrit 39.8 % (39.0-51.0); Hemoglobin 13.4 gm/dL (13.0-17.0); Lymph # (Auto) 0.4 th/mm3 (1.0-4.8); Lymph % (Auto) 4.6 % (9.0-44.0); Mean Corpuscular HGB Conc 33.6 % (32.0-36.0); Mean Corpuscular Hemoglobin 27.7 pg (27.0-34.0); Mean Corpuscular Volume 82.2 fL (80.0-100.0); Mean Platelet Volume 7.4 fL (7.0-11.0); Mono # (Auto) 0.2 th/mm3 (0.0-0.9); Neut # (Auto) 8.7 th/mm3 (1.8-7.7); Neut % (Auto) 93.4 % (16.0-70.0); Platelet Count 170 th/mm3 (150-450); Red Blood Count 4.85 mil/mm3 (4.50-5.90); Red Cell Distribution Width 14.5 % (11.6-17.2); White Blood Count 9.4 th/mm3 (4.0-11.0)
[2018-08-17 03:25] LABS: Anion Gap 12 meq/L (5-15); Blood Urea Nitrogen 15 mg/dL (7-18); Calcium 7.6 mg/dL (8.5-10.1); Carbon Dioxide 24.2 meq/L (21.0-32.0); Chloride 103 meq/L (98-107); Glomerular Filtration Rate Greater Than 89 mL/min (>89); Glucose,Random 396 mg/dL (74-106); Potassium 3.3 meq/L (3.5-5.1); Sodium 139 meq/L (136-145)
[2018-08-17] MEDS ORDERED: Sod Chloride 0.9% Inj 1,000 ML IV.SIG SCH (04:00)
[2018-08-17] MEDS: Insulin NovoLOG Aspart Correctional Sugar Inj SQ SCH ×5 (04:40→20:07)
[2018-08-17 04:49] LABS: Baso % (Auto) 0.1 % (0.0-2.0); Hematocrit 42.3 % (39.0-51.0); Hemoglobin 14.3 gm/dL (13.0-17.0); Lymph # (Auto) 0.5 th/mm3 (1.0-4.8); Mean Corpuscular HGB Conc 33.8 % (32.0-36.0); Mean Corpuscular Hemoglobin 27.9 pg (27.0-34.0); Mean Corpuscular Volume 82.4 fL (80.0-100.0); Mean Platelet Volume 7.3 fL (7.0-11.0); Mono # (Auto) 0.2 th/mm3 (0.0-0.9); Mono % (Auto) 1.8 % (0.0-8.0); Neut # (Auto) 7.5 th/mm3 (1.8-7.7); Neut % (Auto) 92.1 % (16.0-70.0); Platelet Count 164 th/mm3 (150-450); Red Blood Count 5.13 mil/mm3 (4.50-5.90); Red Cell Distribution Width 14.2 % (11.6-17.2); White Blood Count 8.2 th/mm3 (4.0-11.0)
[2018-08-17 05:19] LABS: Calcium 7.6 mg/dL (8.5-10.1); Potassium 3.7 meq/L (3.5-5.1)
[2018-08-17] MEDS: Insulin Detemir Inj 1,000 UNIT/10 ML Vial SQ SCH (08:43)
[2018-08-17] MEDS: Pantoprazole Sodium 20 MG DR Tablet PO SCH (08:43)
[2018-08-17] MEDS: Aspirin 325 MG Tablet PO SCH (08:43)
[2018-08-17] MEDS: Sodium Chloride 0.9% 2 ML Flush BID IV.FLUSH SCH ×2 (08:44→20:07)
[2018-08-17] MEDS: amLODIPine 5 MG Tablet PO SCH (08:44)
[2018-08-17] MEDS: Glimepiride 4 MG Tablet PO SCH (08:44)
[2018-08-17] MEDS ORDERED: buPROPion 150 MG 12 HR Tablet PO SCH (09:00)
--- NOTE | 2018-08-17 09:33 | P.PN ---
Subjective Interval history: This is a pleasant 73 y/o male with Hypertension, DM II, who was brought in to Emergency Room with SOB, wheezing, Fever, nausea and vomit, he has history of recent trip to [facility]. Atrial Fibrillation, Depression, Kidney stones, Osteoporosis. 08/17: Stable in his bedroom states he is improving on antibiotics, encourage for ambulation, and activity to avoid major complications, continue DVT prophylaxis. no nausea, vomit or diarrhea. Physical Exam Vital signs: Vital Signs 08/16/18 17:18 08/16/18 18:37 08/16/18 20:32 Temperature 98.5 F Pulse Rate 85 85 Respiratory Rate 24 24 Blood Pressure 176/85 H Pulse Oximetry 96 97 08/16/18 21:26 08/16/18 23:23 08/17/18 00:00 Temperature 98.2 F Pulse Rate 85 96 H 104 H Respiratory Rate 24 17 Blood Pressure 166/72 H 165/76 H Pulse Oximetry 93 L 08/17/18 04:00 08/17/18 08:00 Temperature 97.8 F 97.6 F Pulse Rate 72 72 Respiratory Rate 18 24 Blood Pressure 137/70 146/74 H Pulse Oximetry 97 94 L Intake & Output 08/16/18 08/17/18 08/17/18 18:59 06:59 18:59 Intake Total 4700 / 4700 Output Total 600 / 600 Balance 4100 / 4100 Weight 81.647 kg 82.9 kg Intake: IV 4100 / 4100 Levaquin 500 mg Premix Inj 500 100 / 100 mg In 100 ml @ 100 mls/hr IV. SIG ONCE ONE Rx#:[id number] NS Inj 1,000 ML @ 1000 mls/hr 4000 / 4000 IV.SIG BOLUS CESAR Rx#:[id number] Oral 600 / 600 Output: Urine 600 / 600 Other: Weight On Admission 82.9 kg Narrative: Gen.: No acute distress Head: Normocephalic. Atraumatic. EENT: Pupils equal round and reactive to light. Nose without drainage. Airway intact. Throat without injection. Cardiovascular: Regular rate and rhythm. No murmurs, rubs or gallops. Respiratory: Bilateral wheezes throughout. No rales or rhonchi. Abdomen: Soft, nontender, nondistended. No peritoneal signs. Musculoskeletal: No gross deformities. No edema. Skin: No obvious rashes or erythema. Neuro: Sensory and motor grossly intact. Cranial nerves II through XII grossly intact. Results - Labs CBC & Chem 7: 08/17/18 04:33 08/17/18 04:33 Laboratory Results - last 24 hr 08/16/18 08/16/18 08/16/18 18:40 18:40 18:40 WBC 11.8 H RBC 5.48 Hgb 15.2 Hct 44.6 MCV 81.2 MCH 27.6 MCHC 34.0 RDW 14.1 Plt Count 196 MPV 7.6 Neut % (Auto) 78.6 H Lymph % (Auto) 14.9 [place] % (Auto) 6.3 Eos % (Auto) 0.0 Baso % (Auto) 0.2 Neut # (Auto) 9.3 H Lymph # (Auto) 1.8 [place] # (Auto) 0.7 Eos # (Auto) 0.0 Baso # (Auto) 0.0 WBC Differential . Differential Comment Auto diff final Sodium 135 L Potassium 3.4 L Chloride 96 L Carbon Dioxide 28.8 Anion Gap 10 BUN 20 H Creatinine 0.81 Estimated GFR Greater than 89 POC Glucose Random Glucose 295 H Lactic Acid 2.1 H Calcium 8.5 Total Bilirubin 1.6 H AST 15 ALT 19 Alkaline Phosphatase 81 Total Protein 7.2 Albumin 3.5 Urine Color Urine Clarity Urine pH Ur Specific [place] Urine Protein Urine Glucose (UA) Urine Ketones Urine Occult Blood Urine Nitrate Urine Bilirubin Urine Urobilinogen Ur Leukocyte Esterase Urine RBC Urine WBC Hyaline Casts Urine Mucus Micro UA Comment Ur Microscopic Review Urine Culture Comments 08/16/18 08/16/18 08/17/18 20:00 21:25 00:34 WBC RBC Hgb Hct MCV MCH MCHC RDW Plt Count MPV Neut % (Auto) Lymph % (Auto) [place] % (Auto) Eos % (Auto) Baso % (Auto) Neut # (Auto) Lymph # (Auto) [place] # (Auto) Eos # (Auto) Baso # (Auto) WBC Differential Differential Comment Sodium Potassium Chloride Carbon Dioxide Anion Gap BUN Creatinine Estimated GFR POC Glucose 323 H Random Glucose Lactic Acid 2.3 H Calcium Total Bilirubin AST ALT Alkaline Phosphatase Total Protein Albumin Urine Color Yellow Urine Clarity Clear Urine pH 5.0 Ur Specific [place] 1.031 Urine Protein 30 H Urine Glucose (UA) 500 or greater Urine Ketones 20 Urine Occult Blood Negative Urine Nitrate Negative Urine Bilirubin Negative Urine Urobilinogen 4 or greater Ur Leukocyte Esterase Negative Urine RBC 1 Urine WBC 3 Hyaline Casts 4 Urine Mucus Few H Micro UA Comment Culture not ind Ur Microscopic Review Not Reportable Urine Culture Comments Culture not ind 08/17/18 08/17/18 08/17/18 02:34 02:34 02:34 WBC 9.4 RBC 4.85 Hgb 13.4 Hct 39.8 MCV 82.2 MCH 27.7 MCHC 33.6 RDW 14.5 Plt Count 170 MPV 7.4 Neut % (Auto) 93.4 H Lymph % (Auto) 4.6 L [place] % (Auto) 2.0 Eos % (Auto) 0.0 Baso % (Auto) 0.0 Neut # (Auto) 8.7 H Lymph # (Auto) 0.4 L [place] # (Auto) 0.2 Eos # (Auto) 0.0 Baso # (Auto) 0.0 WBC Differential . Differential Comment Auto diff final Sodium 139 Potassium 3.3 L Chloride 103 Carbon Dioxide 24.2 Anion Gap 12 BUN 15 Creatinine 0.78 Estimated GFR Greater than 89 POC Glucose Random Glucose 396 H D Lactic Acid 4.2 H* Calcium 7.6 L D Total Bilirubin AST ALT Alkaline Phosphatase Total Protein Albumin Urine Color Urine Clarity Urine pH Ur Specific [place] Urine Protein Urine Glucose (UA) Urine Ketones Urine Occult Blood Urine Nitrate Urine Bilirubin Urine Urobilinogen Ur Leukocyte Esterase Urine RBC Urine WBC Hyaline Casts Urine Mucus Micro UA Comment Ur Microscopic Review Urine Culture Comments 08/17/18 08/17/18 08/17/18 04:33 04:33 04:33 WBC 8.2 RBC 5.13 Hgb 14.3 Hct 42.3 MCV 82.4 MCH 27.9 MCHC 33.8 RDW 14.2 Plt Count 164 MPV 7.3 Neut % (Auto) 92.1 H Lymph % (Auto) 6.0 L [place] % (Auto) 1.8 Eos % (Auto) 0.0 Baso % (Auto) 0.1 Neut # (Auto) 7.5 Lymph # (Auto) 0.5 L [place] # (Auto) 0.2 Eos # (Auto) 0.0 Baso # (Auto) 0.0 WBC Differential . Differential Comment Auto diff final Sodium 140 Potassium 3.7 Chloride 102 Carbon Dioxide 26.0 Anion Gap 12 BUN 15 Creatinine 0.91 Estimated GFR 82 L POC Glucose Random Glucose 366 H Lactic Acid 3.6 H Calcium 7.6 L Total Bilirubin AST ALT Alkaline Phosphatase Total Protein Albumin Urine Color Urine Clarity Urine pH Ur Specific [place] Urine Protein Urine Glucose (UA) Urine Ketones Urine Occult Blood Urine Nitrate Urine Bilirubin Urine Urobilinogen Ur Leukocyte Esterase Urine RBC Urine WBC Hyaline Casts Urine Mucus Micro UA Comment Ur Microscopic Review Urine Culture Comments 08/17/18 08/17/18 04:36 07:37 WBC RBC Hgb Hct MCV MCH MCHC RDW Plt Count MPV Neut % (Auto) Lymph % (Auto) [place] % (Auto) Eos % (Auto) Baso % (Auto) Neut # (Auto) Lymph # (Auto) [place] # (Auto) Eos # (Auto) Baso # (Auto) WBC Differential Differential Comment Sodium Potassium Chloride Carbon Dioxide Anion Gap BUN Creatinine Estimated GFR POC Glucose 358 H 287 H Random Glucose Lactic Acid Calcium Total Bilirubin AST ALT Alkaline Phosphatase Total Protein Albumin Urine Color Urine Clarity Urine pH Ur Specific [place] Urine Protein Urine Glucose (UA) Urine Ketones Urine Occult Blood Urine Nitrate Urine Bilirubin Urine Urobilinogen Ur Leukocyte Esterase Urine RBC Urine WBC Hyaline Casts Urine Mucus Micro UA Comment Ur Microscopic Review Urine Culture Comments Microbiology 08/16/18 19:20 Nasal Wash Influenza Types A,B Antigen - Final Negative for FLU A and B antigen Infection due to influenza A or B cannot be ruled out since the antigen present in the sample may be below the detection limit of the test. - Imaging Impressions Chest X-Ray 08/16/18 00:00 CONCLUSION: No acute cardiopulmonary disease. - Procedures None Assessment and Plan - Plan 1. Shortness of breath Chest x-ray negative for acute process Concern for clinical pneumonia given increased cough, fever following URI Levaquin IV steroids given persistent wheezing and poor air movement Bronchodilators, Mucolytic and incentive spirometry. 2. Nausea/vomiting Improved. 3. Hypertension Continue home medications 4. Diabetes mellitus, Following Hemoglobin A1C and titrate Insulin as needed. Continue home Lantus, on hold Metformin. Sliding-scale insulin 5. History of atrial fibrillation Status post ablation NSR FEN Cardiac and diabetic diet NS +10 KCl at 100 cc/hour Electrolytes: Monitor BMP, IV fluids supplemented with potassium Lovenox Code Status: Full Code. Discussed Condition With: Patient and Nurse Miss Logan Discharge Planning: expected by tomorrow.
[2018-08-17] MEDS: guaiFENesin 600 MG ER Tablet PO SCH (20:06)
[2018-08-17 21:00] VITALS: O2SAT 94
[2018-08-18] MEDS: Enoxaparin Inj 40 MG/0.4 ML Syringe SQ SCH (00:17)
[2018-08-18] MEDS: MethylPREDNISolone Sod Succinate Inj 40 MG/ML Vial IV.PUSH SCH ×3 (00:18→12:04)
[2018-08-18] MEDS: Insulin NovoLOG Aspart Correctional Sugar Inj SQ SCH ×3 (03:00→12:03)
[2018-08-18 06:03] LABS: Hematocrit 37.3 % (39.0-51.0); Hemoglobin 13.2 gm/dL (13.0-17.0); Lymph # (Auto) 0.7 th/mm3 (1.0-4.8); Lymph % (Auto) 7.3 % (9.0-44.0); Mean Corpuscular HGB Conc 35.3 % (32.0-36.0); Mean Corpuscular Hemoglobin 28.5 pg (27.0-34.0); Mean Corpuscular Volume 80.7 fL (80.0-100.0); Mean Platelet Volume 7.2 fL (7.0-11.0); Mono # (Auto) 0.4 th/mm3 (0.0-0.9); Mono % (Auto) 3.6 % (0.0-8.0); Neut # (Auto) 8.8 th/mm3 (1.8-7.7); Neut % (Auto) 89.1 % (16.0-70.0); Platelet Count 170 th/mm3 (150-450); Red Blood Count 4.63 mil/mm3 (4.50-5.90); Red Cell Distribution Width 14.7 % (11.6-17.2); White Blood Count 9.9 th/mm3 (4.0-11.0)
[2018-08-18 06:31] LABS: Anion Gap 10 meq/L (5-15); Blood Urea Nitrogen 18 mg/dL (7-18); Calcium 7.6 mg/dL (8.5-10.1); Carbon Dioxide 24.8 meq/L (21.0-32.0); Chloride 104 meq/L (98-107); Glomerular Filtration Rate Greater Than 89 mL/min (>89); Glucose,Random 209 mg/dL (74-106); Potassium 3.7 meq/L (3.5-5.1); Sodium 139 meq/L (136-145)
[2018-08-18] MEDS: Insulin Detemir Inj 1,000 UNIT/10 ML Vial SQ SCH (08:33)
[2018-08-18] MEDS: amLODIPine 5 MG Tablet PO SCH (08:41)
[2018-08-18] MEDS: Lisinopril 20 MG Tablet PO SCH (08:42)
[2018-08-18] MEDS: Pantoprazole Sodium 20 MG DR Tablet PO SCH (08:42)
[2018-08-18] MEDS: guaiFENesin 600 MG ER Tablet PO SCH (08:42)
[2018-08-18] MEDS: Glimepiride 4 MG Tablet PO SCH (08:42)
[2018-08-18] MEDS: Sodium Chloride 0.9% 2 ML Flush BID IV.FLUSH SCH (08:43)
[2018-08-18] MEDS: Aspirin 325 MG Tablet PO SCH (08:44)
[2018-08-18] MEDS: Potassium Chloride Inj 10 MEQ in Sod Chloride 0.9% Inj 1,000 ML IV.CONT SCH (08:45)
[2018-08-18 12:09] VITALS: BP 160/76; TEMP 98
--- NOTE | 2018-08-18 12:57 | P.PN ---
Subjective Interval history: This is a pleasant 73 y/o male with Hypertension, DM II, who was brought in to Emergency Room with SOB, wheezing, Fever, nausea and vomit, he has history of recent trip to [facility]. Atrial Fibrillation, Depression, Kidney stones, Osteoporosis. 08/17: Stable in his bedroom states he is improving on antibiotics, encourage for ambulation, and activity to avoid major complications, continue DVT prophylaxis. 08/18: Seen in his bedroom in the presence of his , patient stable no nausea , vomit or diarrhea, improving condition will discharge home and follow with PCP. Physical Exam Vital signs: Vital Signs 08/17/18 15:56 08/17/18 16:00 08/17/18 20:00 Temperature 98.0 F 97.5 F L Pulse Rate 78 72 64 Respiratory Rate 22 15 21 Blood Pressure 149/70 H 157/72 H Pulse Oximetry 90 L 94 L 08/18/18 00:00 08/18/18 03:42 08/18/18 04:00 Temperature 98.2 F 97.2 F L Pulse Rate 66 72 89 Respiratory Rate 20 16 20 Blood Pressure 149/63 H 168/71 H Pulse Oximetry 94 L 94 L 08/18/18 08:00 08/18/18 08:43 08/18/18 12:00 Temperature 97.3 F L 98.0 F Pulse Rate 66 87 76 Respiratory Rate 16 18 17 Blood Pressure 151/68 H 160/76 H Pulse Oximetry 94 L 94 L Intake & Output 08/17/18 08/18/18 08/18/18 18:59 06:59 18:59 Intake Total 2029 1510 / 1510 1005 / 1005 Output Total 200 / 200 Balance 2029 1310 / 1310 1005 / 1005 Weight 84.4 kg Intake: IV 1005 / 1005 1150 / 1150 1005 / 1005 KCl Inj 10 MEQ In NS Inj 1,000 1005 / 1005 1000 / 1000 1005 / 1005 ML @ 100 mls/hr IV.CONT .Q10H3M CESAR Rx#:[id number] Levaquin 750 mg Premix Inj 150 150 / 150 ML @ 100 mls/hr IV.SIG Q24H CESAR Rx#:[id number] Oral 1025 / 1025 360 / 360 Output: Urine 200 / 200 Other: # Voids 660 # Bowel Movements 1 Narrative: Gen.: No acute distress Head: Normocephalic. Atraumatic. EENT: Pupils equal round and reactive to light. Nose without drainage. Airway intact. Throat without injection. Cardiovascular: Regular rate and rhythm. No murmurs, rubs or gallops. Respiratory: Bilateral wheezes throughout. No rales or rhonchi. Abdomen: Soft, nontender, nondistended. No peritoneal signs. Musculoskeletal: No gross deformities. No edema. Skin: No obvious rashes or erythema. Neuro: Sensory and motor grossly intact. Cranial nerves II through XII grossly intact. Results - Labs CBC & Chem 7: 08/18/18 05:49 08/18/18 05:49 Laboratory Results - last 24 hr 08/17/18 08/17/18 08/18/18 16:12 20:05 02:55 WBC RBC Hgb Hct MCV MCH MCHC RDW Plt Count MPV Neut % (Auto) Lymph % (Auto) [place] % (Auto) Eos % (Auto) Baso % (Auto) Neut # (Auto) Lymph # (Auto) [place] # (Auto) Eos # (Auto) Baso # (Auto) WBC Differential Differential Comment Sodium Potassium Chloride Carbon Dioxide Anion Gap BUN Creatinine Estimated GFR POC Glucose 172 H 217 H 218 H Random Glucose Lactic Acid Calcium 08/18/18 08/18/18 08/18/18 05:49 05:49 05:49 WBC 9.9 RBC 4.63 Hgb 13.2 Hct 37.3 L MCV 80.7 MCH 28.5 MCHC 35.3 RDW 14.7 Plt Count 170 MPV 7.2 Neut % (Auto) 89.1 H Lymph % (Auto) 7.3 L [place] % (Auto) 3.6 Eos % (Auto) 0.0 Baso % (Auto) 0.0 Neut # (Auto) 8.8 H Lymph # (Auto) 0.7 L [place] # (Auto) 0.4 Eos # (Auto) 0.0 Baso # (Auto) 0.0 WBC Differential . Differential Comment Auto diff final Sodium 139 Potassium 3.7 Chloride 104 Carbon Dioxide 24.8 Anion Gap 10 BUN 18 Creatinine 0.61 Estimated GFR Greater than 89 POC Glucose Random Glucose 209 H D Lactic Acid 1.9 Calcium 7.6 L 08/18/18 08/18/18 08:01 11:33 WBC RBC Hgb Hct MCV MCH MCHC RDW Plt Count MPV Neut % (Auto) Lymph % (Auto) [place] % (Auto) Eos % (Auto) Baso % (Auto) Neut # (Auto) Lymph # (Auto) [place] # (Auto) Eos # (Auto) Baso # (Auto) WBC Differential Differential Comment Sodium Potassium Chloride Carbon Dioxide Anion Gap BUN Creatinine Estimated GFR POC Glucose 213 H 246 H Random Glucose Lactic Acid Calcium Microbiology 08/16/18 18:40 Blood - Peripheral Aerobic Blood Culture - Preliminary No growth in 2 days 08/16/18 18:40 Blood - Peripheral Anaerobic Blood Culture - Preliminary No growth in 2 days 08/16/18 18:45 Blood - Peripheral Aerobic Blood Culture - Preliminary No growth in 2 days 08/16/18 18:45 Blood - Peripheral Anaerobic Blood Culture - Preliminary No growth in 2 days - Imaging Chest X-Ray 08/16/18 00:00 CONCLUSION: No acute cardiopulmonary disease. - Procedures None Assessment and Plan - Plan 1. Shortness of breath, COPD exacerbation Improved. Chest x-ray negative for acute process Concern for clinical pneumonia given increased cough, fever following URI Levaquin will continue five days, more, IV Solu-Medrol switched to Prednisone 20 mg daily for five days. Bronchodilators, Mucolytic and incentive spirometry. 2. Nausea/vomiting Improved. 3. Hypertension Continue home medications 4. Diabetes mellitus moderate uncontrol due to IV Steroids, will switch to by mouth Prednisone. Continue home medicines. Sliding-scale insulin 5. History of atrial fibrillation Status post ablation NSR FEN Cardiac and diabetic diet Lovenox for DVT prophylaxis. Code Status: Full code. Discussed Condition With: Patient and Nurse Denisse Tru. Discharge Planning: Discharge Home today.
[2018-08-18 13:27] VITALS: PULSE 65; RESP 18
--- NOTE | 2018-08-18 14:49 | P.DS ---
Date of admission: 08/16/18 22:50 Primary care physician: James Scales MD Attending physician on discharge: Howard Carter Anticipated date of discharge: 08/18/18 Brief History from admission: 73-year-old male with a past medical history significant for hypertension and diabetes presents to the emergency department for the evaluation of shortness of breath, wheezing, fever, nausea/vomiting and the inability to tolerate p.o. for the past 2 days. The patient and his were previously in the [facility]. On 08/05 the patient developed a cough which persisted for approximately 5 days and then improved. On 08/12 he developed a fever and his current symptoms. Per his , she could hear audible wheezing on the plane this afternoon. Patient denies any chest pain. No lateralizing signs/symptoms. DS: Medications - Discharge Medications Prescriptions: guaifenesin [Mucinex] 600 mg PO BID #60 tab levofloxacin [Levaquin] 750 mg PO DAILY #5 tab prednisone [Deltasone] 20 mg PO DAILY #5 tab DS: Summary Hospital Course: This is a pleasant 73 y/o male with Hypertension, DM II, who was brought in to Emergency Room with SOB, wheezing, Fever, nausea and vomit, he has history of recent trip to [facility]. Atrial Fibrillation, Depression, Kidney stones, Osteoporosis. 08/17: Stable in his bedroom states he is improving on antibiotics, encourage for ambulation, and activity to avoid major complications, continue DVT prophylaxis. 08/18: Seen in his bedroom in the presence of his , patient stable no nausea , vomit or diarrhea, improving condition will discharge home and follow with PCP. Assessment and Plan - Plan 1. Shortness of breath, COPD exacerbation Improved. Chest x-ray negative for acute process Concern for clinical pneumonia given increased cough, fever following URI Levaquin will continue five days, more, IV Solu-Medrol switched to Prednisone 20 mg daily for five days. Bronchodilators, Mucolytic and incentive spirometry. 2. Nausea/vomiting Improved. 3. Hypertension Continue home medications 4. Diabetes mellitus moderate uncontrol due to IV Steroids, will switch to by mouth Prednisone. Continue home medicines. Sliding-scale insulin 5. History of atrial fibrillation Status post ablation NSR FEN Cardiac and diabetic diet Lovenox for DVT prophylaxis. Code Status: Full code. Discussed Condition With: Patient and Nurse Mr. Ott. Discharge Planning: Discharge Home today. - Time Spent with Patient Total time spent providing and/or coordinating discharge services: Less than 30 minutes - Quality: VTE Deep Vein Thrombosis/Pulmonary Embolism Present on Admission: No Exam Vital signs: Vital Signs 08/17/18 15:56 08/17/18 16:00 08/17/18 20:00 Temperature 98.0 F 97.5 F L Pulse Rate 78 72 64 Respiratory Rate 22 15 21 Blood Pressure 149/70 H 157/72 H Pulse Oximetry 90 L 94 L 08/18/18 00:00 08/18/18 03:42 08/18/18 04:00 Temperature 98.2 F 97.2 F L Pulse Rate 66 72 89 Respiratory Rate 20 16 20 Blood Pressure 149/63 H 168/71 H Pulse Oximetry 94 L 94 L 08/18/18 08:00 08/18/18 08:43 08/18/18 12:00 Temperature 97.3 F L 98.0 F Pulse Rate 66 87 76 Respiratory Rate 16 18 17 Blood Pressure 151/68 H 160/76 H Pulse Oximetry 94 L 94 L 08/18/18 13:26 Temperature Pulse Rate 65 Respiratory Rate 18 Blood Pressure Pulse Oximetry Intake & Output 08/17/18 08/18/18 08/18/18 18:59 06:59 18:59 Intake Total 2029 1510 / 1510 1610 / 1610 Output Total 200 / 200 Balance 2029 1310 / 1310 1610 / 1610 Weight 84.4 kg Intake: IV 1005 / 1005 1150 / 1150 1610 / 1610 KCl Inj 10 MEQ In NS Inj 1,000 1005 / 1005 1000 / 1000 1610 / 1610 ML @ 100 mls/hr IV.CONT .Q10H3M CESAR Rx#:[id number] Levaquin 750 mg Premix Inj 150 150 / 150 ML @ 100 mls/hr IV.SIG Q24H CESAR Rx#:[id number] Oral 1025 / 1025 360 / 360 Output: Urine 200 / 200 Other: # Voids 660 # Bowel Movements 1 Narrative: Gen.: No acute distress Head: Normocephalic. Atraumatic. EENT: Pupils equal round and reactive to light. Nose without drainage. Airway intact. Throat without injection. Cardiovascular: Regular rate and rhythm. No murmurs, rubs or gallops. Respiratory: Bilateral wheezes throughout. No rales or rhonchi. Abdomen: Soft, nontender, nondistended. No peritoneal signs. Musculoskeletal: No gross deformities. No edema. Skin: No obvious rashes or erythema. Neuro: Sensory and motor grossly intact. Cranial nerves II through XII grossly intact. Results Procedures completed during hospitalization: None Labs on day of discharge: Labs from last 24 hours 08/18/18 08/18/18 08/18/18 11:33 08:01 05:49 WBC RBC Hgb Hct MCV MCH MCHC RDW Plt Count MPV Neut % (Auto) Lymph % (Auto) [place] % (Auto) Eos % (Auto) Baso % (Auto) Neut # (Auto) Lymph # (Auto) [place] # (Auto) Eos # (Auto) Baso # (Auto) WBC Differential Differential Comment Sodium Potassium Chloride Carbon Dioxide Anion Gap BUN Creatinine Estimated GFR POC Glucose 246 H 213 H Random Glucose Lactic Acid 1.9 Calcium 08/18/18 08/18/18 08/18/18 05:49 05:49 02:55 WBC 9.9 RBC 4.63 Hgb 13.2 Hct 37.3 L MCV 80.7 MCH 28.5 MCHC 35.3 RDW 14.7 Plt Count 170 MPV 7.2 Neut % (Auto) 89.1 H Lymph % (Auto) 7.3 L [place] % (Auto) 3.6 Eos % (Auto) 0.0 Baso % (Auto) 0.0 Neut # (Auto) 8.8 H Lymph # (Auto) 0.7 L [place] # (Auto) 0.4 Eos # (Auto) 0.0 Baso # (Auto) 0.0 WBC Differential . Differential Comment Auto diff final Sodium 139 Potassium 3.7 Chloride 104 Carbon Dioxide 24.8 Anion Gap 10 BUN 18 Creatinine 0.61 Estimated GFR Greater than 89 POC Glucose 218 H Random Glucose 209 H D Lactic Acid Calcium 7.6 L 08/17/18 08/17/18 20:05 16:12 WBC RBC Hgb Hct MCV MCH MCHC RDW Plt Count MPV Neut % (Auto) Lymph % (Auto) [place] % (Auto) Eos % (Auto) Baso % (Auto) Neut # (Auto) Lymph # (Auto) [place] # (Auto) Eos # (Auto) Baso # (Auto) WBC Differential Differential Comment Sodium Potassium Chloride Carbon Dioxide Anion Gap BUN Creatinine Estimated GFR POC Glucose 217 H 172 H Random Glucose Lactic Acid Calcium Preliminary micro results at discharge 08/16/18 18:40 Aerobic Blood Culture - Preliminary Blood - Peripheral No growth in 2 days Anaerobic Blood Culture - Preliminary No growth in 2 days 08/16/18 18:45 Aerobic Blood Culture - Preliminary Blood - Peripheral No growth in 2 days Anaerobic Blood Culture - Preliminary No growth in 2 days - Impressions ITS Impressions Chest X-Ray 08/16/18 00:00 CONCLUSION: No acute cardiopulmonary disease. Discharge Plan - Discharge Disposition Patient Disposition: Discharge Home - Discharge Condition Condition: Good - Discharge Order Discharge Orders: Discharge Order (Routine); Ordered 08/18/18 Ordered By: Howard Carter - Discharge Details Anticipated Discharge Date: 08/18/18 Discharge Comment: Follow up with PCP in three days. - Physicians Team Primary Care Provider: James Scales Attending Provider: Howard Carter
== END 2018-08-18 14:52 | disposition home or self-care (01) ==
LOC: NEDA 17:07 → NEPD 17:07 → NEDA 08-17 00:25 → N07 08-17 00:29
PROVIDERS: ADMIT Internal Medicine; ATTEND Internal Medicine
DX: J44.1 Chronic obstructive pulmonary disease with (acute) exacerbation; H61.23 Impacted cerumen, bilateral; Z87.891 Personal history of nicotine dependence; F32.9 Major depressive disorder, single episode, unspecified; Z79.899 Other long term (current) drug therapy; Z79.83 Long term (current) use of bisphosphonates; M81.0 Age-related osteoporosis without current pathological fracture; Z79.82 Long term (current) use of aspirin; E11.65 Type 2 diabetes mellitus with hyperglycemia; Z79.4 Long term (current) use of insulin; I10 Essential (primary) hypertension; T38.0X5A Adverse effect of glucocorticoids and synthetic analogues, initial encounter